=== PATIENT | female | born 1955 | race Asian ===

== ENCOUNTER → 2016-11-22 | Outpatient (CLI) | payer BC ==
[~2016-11-22] MED LIST: AMLO10TA4 PO; ASPI325T2 PO; CLOP75TA2 PO; LOSA1TAB34 PO; METF500T4 PO; METO100T5 PO; PRAV40TA58 PO; TRAM50TA73 PO
[2016-11-22 06:45] LABS: CLARITY URINE CLEAR (CLEAR); COLOR URINE YELLOW (YELLOW); GLUCOSE URINE NEGATIVE (NEGATIVE); KETONES URINE NEGATIVE (NEGATIVE); LEUKOCYTE ESTERASE URINE TRACE (NEGATIVE); NITRITE URINE NEGATIVE (NEGATIVE); OCCULT BLOOD URINE NEGATIVE (NEGATIVE); PH URINE 5.5 (4.5-8.0); PROTEIN URINE NEGATIVE (NEGATIVE); UROBILINOGEN URINE 0.2 E.U./dL (0.2-1.0)
[2016-11-22 06:49] LABS: EOSINOPHILS % 2.9 % (0.0-5.0); HEMATOCRIT. 39.4 % (36.0-48.0); HEMOGLOBIN. 13.2 g/dL (12.0-16.0); LYMPHOCYTES % 39.7 % (20.0-50.0); MEAN CORPUSCULAR HEMOGLOBIN 29.3 pg (28.0-32.0); MEAN CORPUSCULAR HGB CONC 33.4 g/dL (31.0-37.0); MEAN CORPUSCULAR VOLUME 87.5 fL (81.0-99.0); MEAN PLATELET VOLUME 7.7 fl (7.4-10.4); MONOCYTES % 6.1 % (2.0-8.0); NEUTROPHILS % 50.3 % (40.0-76.0); PLATELET 293 x1000/uL (130-400); RED CELL DISTRIBUTION WIDTH 13.2 % (11.6-14.6); WHITE BLOOD COUNT 8.7 x1000/uL (4.5-11.0)
[2016-11-22 07:01] LABS: SQUAMOUS EPITHELIAL CELL URINE FEW /lpf (RARE/1+)
[2016-11-22 07:03] LABS: BACTERIA URINE NONE SEEN; RBC URINE NONE SEEN /hpf (0-2); WBC URINE 0-2 /hpf (0-2)
[2016-11-22 07:23] LABS: ALANINE AMINOTRANSFERASE 49 IU/L (13-61); ALBUMIN 3.9 g/dL (3.4-5.0); ANION GAP 15; CALCIUM 8.6 mg/dL (8.5-10.1); CARBON DIOXIDE 26 mEq/L (21-32); CHLORIDE 106 mEq/L (98-107); HDL CHOLESTEROL 55 mg/dL (40-59); INDEX HEMOLYSI 1 (1-3); INDEX ICTERIC 1 (1-4); INDEX LIPEMIC 1 (1-3); LDL CHOLESTEROL 98 mg/dL (5-100); PHOSPHORUS 3.7 mg/dL (2.5-4.9); T4 FREE 1.09 ng/dL (0.76-1.46); TRIGLYCERIDE 166 mg/dL (0-150); UREA NITROGEN BLOOD 18 mg/dL (7-21); eGFR > 60 mL/min (>60)
[2016-11-23 13:12] LABS: VITAMIN D 25-OH 17.8 ng/mL (30.0-100.0)
[2016-11-23 14:24] LABS: *CREATININE RANDOM URINE 98.9 mg/dL (Not Estab.); MICROALBUMIN RANDOM URINE 28.6 ug/mL (Not Estab.); MICROALBUMIN/CREATININE RATIO 28.9 mg/g creat (0.0-30.0)
[2016-11-24 17:07] LABS: A/G RATIO 1.2 (0.7-1.7); ALBUMIN 4.2 g/dL (2.9-4.4); ALPHA-1-GLOBULIN 0.2 g/dL (0.0-0.4); ALPHA-2-GLOBULIN 0.7 g/dL (0.4-1.0); BETA GLOBULIN 1.3 g/dL (0.7-1.3); GAMMA GLOBULINS 1.3 g/dL (0.4-1.8); GLOBULIN TOTAL 3.5 g/dL (2.2-3.9); M-SPIKE Not Observed g/dL (Not Observed); TOTAL PROTEIN SERUM 7.7 g/dL (6.0-8.5)
== END | disposition home or self-care (01) ==
LOC: LAB 06:15
PROVIDERS: ATTEND Internal Medicine Endocrinology, Diabetes & Metabolism
DX: E11.9 Type 2 diabetes mellitus without complications (principal); I10 Essential (primary) hypertension; E78.5 Hyperlipidemia, unspecified; M85.80 Other specified disorders of bone density and structure, unspecified site; E55.9 Vitamin D deficiency, unspecified; E78.2 Mixed hyperlipidemia; I25.110 Atherosclerotic heart disease of native coronary artery with unstable angina pectoris
CPT/HCPCS: 36415; 80053; 80061; 81001; 82043; 82306; 82570; 83036; 83735; 83970; 84100; 84155; 84165; 84439; 84443; 85025; 87086

== ENCOUNTER → 2016-11-26 | Outpatient (CLI) | payer BC | END | disposition home or self-care (01) | LOC: MRI 07:17 | PROVIDERS: ATTEND Specialist | DX: G31.9 Degenerative disease of nervous system, unspecified (principal); R90.82 White matter disease, unspecified; R20.0 Anesthesia of skin | CPT/HCPCS: 70551 ==

== ENCOUNTER → 2016-12-07 | Outpatient (CLI) | payer BC | END | disposition home or self-care (01) | LOC: CARD 08:52 | PROVIDERS: ATTEND Specialist | DX: I10 Essential (primary) hypertension (principal); I25.10 Atherosclerotic heart disease of native coronary artery without angina pectoris | CPT/HCPCS: 93306 ==

== ENCOUNTER → 2016-12-24 | Outpatient (CLI) | payer BC ==
[~2016-12-24] MED LIST changes: +REGADENOSON 0.4 MG/5 ML IV ONE
== END | disposition home or self-care (01) ==
LOC: NM 07:50
PROVIDERS: ATTEND Specialist
DX: R07.9 Chest pain, unspecified (principal)
CPT/HCPCS: 78452; 93017; A9500; J2785

== ENCOUNTER → 2017-03-21 | Outpatient (CLI) | payer BC ==
[~2017-03-21] VITALS: Ht 162.6 cm; Wt 69.9 kg
[~2017-03-21] MED LIST changes: +ASPI-986 PO; -ASPI325T2 PO; +IOHEXOL-350 100 ML BOTTLE ONE; +NITROGLYCERIN SPRAY/4.9GM CAN TL ONE; -REGADENOSON 0.4 MG/5 ML IV ONE; +SODIUM CHLORIDE 0.9% 10ML VIAL ONE
== END | disposition home or self-care (01) ==
LOC: CT 07:33
PROVIDERS: ATTEND Specialist
DX: R07.9 Chest pain, unspecified (principal); I51.5 Myocardial degeneration
CPT/HCPCS: 75571; A4216; Q9967

== ENCOUNTER 2017-05-13 08:28 | Inpatient (IN) | payer BC ==
[~2017-05-13] VITALS: Ht 162.6 cm; Wt 71.2 kg
[2017-05-13] VITALS (10 sets, daily range): BP systolic 102–145; BP diastolic 52–82
[~2017-05-13 08:28] MED LIST changes: +CLOP75TA16 PO; -CLOP75TA2 PO; -IOHEXOL-350 100 ML BOTTLE ONE; -NITROGLYCERIN SPRAY/4.9GM CAN TL ONE; -SODIUM CHLORIDE 0.9% 10ML VIAL ONE
[2017-05-13 09:21] LABS: BASOPHILS % 0.8 % (0.0-2.0); HEMATOCRIT. 37.7 % (36.0-48.0); HEMOGLOBIN. 12.9 g/dL (12.0-16.0); LYMPHOCYTES % 21.7 % (20.0-50.0); MEAN CORPUSCULAR HEMOGLOBIN 29.3 pg (28.0-32.0); MEAN CORPUSCULAR VOLUME 85.6 fL (81.0-99.0); MEAN PLATELET VOLUME 8.3 fl (7.4-10.4); MONOCYTES % 7.9 % (2.0-8.0); NEUTROPHILS % 68.6 % (40.0-76.0); PLATELET 275 x1000/uL (130-400); RED CELL DISTRIBUTION WIDTH 13.2 % (11.6-14.6)
[2017-05-13 09:25] LABS: CHLORIDE 104 mEq/L (98-107)
[2017-05-13 09:31] LABS: CARBON DIOXIDE 28 mEq/L (21-32)
[2017-05-13] MEDS ORDERED: LIDOCAINE HCL 1% 20ML VIAL (Pyxis) INJ ONE (12:42)
[2017-05-13] MEDS ORDERED: IOHEXOL-300 100 ML BOTTLE ONE ×2 (12:42→13:27)
[2017-05-13] MEDS ORDERED: DIPHENHYDRAMINE 50MG/ML VIAL ONE (12:54)
[2017-05-13] MEDS ORDERED: HYDROCORTISONE SOD SUCCINATE 250 MG/2 ML VIAL ONE (12:54)
[2017-05-13] MEDS ORDERED: FAMOTIDINE 20MG/2ML VIAL IV ONE (12:54)
[2017-05-13] MEDS ORDERED: FENTANYL CITRATE/PF 50MCG/ML 2ML VIAL ONE (13:02)
[2017-05-13] MEDS ORDERED: MIDAZOLAM HCL 2 MG/2 ML VIAL ONE (13:02)
[2017-05-13] MEDS ORDERED: HEPARIN SODIUM 1,000 UNIT/1ML VIAL IV ONE (13:21)
[2017-05-13] MEDS ORDERED: IOVERSOL 240MG/ML 100ML BOTTLE IV ONE (13:25)
[2017-05-13] MEDS ORDERED: ATROPINE SULFATE 0.1MG/ML 10ML DISP.SYRIN ONE (13:27)
[2017-05-13] MEDS ORDERED: HYDRALAZINE 20MG/ML VIAL ONE (13:50)
[2017-05-13] MEDS ORDERED: NITROGLYCERIN 50MCG/ML 10ML VIAL (CATH LAB) IV ONE (14:15)
[2017-05-13] MEDS ORDERED: NICARDIPINE 100MCG/ML 10ML VIAL (CATH LAB) IV ONE (14:15)
[2017-05-13] MEDS ORDERED: TRAMADOL 50MG TABLET PO PRN (15:30)
[2017-05-13] MEDS ORDERED: ACETAMINOPHEN 325MG TABLET PO PRN (15:30)
[2017-05-13] MEDS ORDERED: ONDANSETRON HCL 4MG/2ML VIAL IV PRN (15:30)
[2017-05-13] MEDS ORDERED: ATROPINE SULFATE 1MG/10ML SYR IV PRN (15:45)
[2017-05-13] MEDS ORDERED: MORPHINE SULFATE 4 MG/ML CPJ (NOT FOR IM USE) IV PRN (15:45)
[2017-05-13] MEDS: METOPROLOL TARTRATE 100MG TABLET PO SCH (18:13)
[2017-05-14] VITALS (15 sets, daily range): BP systolic 108–135; BP diastolic 52–93
[2017-05-14] MEDS ORDERED: METHYLPREDNISOLONE SOD SUCC 125 MG/2 ML VIAL IV SCH (05:30)
[2017-05-14] MEDS ORDERED: FAMOTIDINE 20MG/2ML VIAL IV SCH (05:30)
[2017-05-14] MEDS ORDERED: DIPHENHYDRAMINE 50MG/ML VIAL IV SCH (05:30)
[2017-05-14 06:25] LABS: BASOPHILS % 0.5 % (0.0-2.0); EOSINOPHILS % 1.3 % (0.0-5.0); HEMATOCRIT. 37.6 % (36.0-48.0); HEMOGLOBIN. 12.9 g/dL (12.0-16.0); LYMPHOCYTES % 25.6 % (20.0-50.0); MEAN CORPUSCULAR HEMOGLOBIN 29.4 pg (28.0-32.0); MEAN CORPUSCULAR VOLUME 85.5 fL (81.0-99.0); MEAN PLATELET VOLUME 7.9 fl (7.4-10.4); MONOCYTES % 5.6 % (2.0-8.0); PLATELET 264 x1000/uL (130-400); RED CELL DISTRIBUTION WIDTH 13.5 % (11.6-14.6)
[2017-05-14 07:16] LABS: CHLORIDE 105 mEq/L (98-107)
[2017-05-14 07:28] LABS: CARBON DIOXIDE 24 mEq/L (21-32)
[2017-05-14] MEDS: METOPROLOL TARTRATE 100MG TABLET PO SCH ×2 (08:31→16:07)
[2017-05-14] MEDS: AMLODIPINE 10MG TABLET PO SCH (08:32)
[2017-05-14] MEDS: CLOPIDOGREL 75MG TABLET PO SCH (08:32)
[2017-05-14] MEDS: ASPIRIN 325MG TABLET PO SCH (08:32)
[2017-05-14] MEDS ORDERED: CLOPIDOGREL 75MG TABLET PO SCH (09:00)
[2017-05-14] MEDS ORDERED: ASPIRIN 325MG TABLET PO SCH (09:00)
[2017-05-14] MEDS ORDERED: POTASSIUM CHLORIDE 20MEQ TABLET SR PO NR (13:30)
[2017-05-14] MEDS: DIPHENHYDRAMINE 25MG CAPSULE PO PRN ×2 (14:21→20:21)
[2017-05-15] VITALS (8 sets, daily range): BP systolic 100–139; BP diastolic 54–81
[2017-05-15] MEDS: DIPHENHYDRAMINE 25MG CAPSULE PO PRN ×2 (05:44→11:00)
[2017-05-15 06:13] LABS: BASOPHILS % 0.1 % (0.0-2.0); EOSINOPHILS % 0.1 % (0.0-5.0); HEMATOCRIT. 36.7 % (36.0-48.0); HEMOGLOBIN. 12.4 g/dL (12.0-16.0); LYMPHOCYTES % 14.3 % (20.0-50.0); MEAN CORPUSCULAR HEMOGLOBIN 29.1 pg (28.0-32.0); MEAN CORPUSCULAR VOLUME 86.4 fL (81.0-99.0); MEAN PLATELET VOLUME 8.3 fl (7.4-10.4); MONOCYTES % 5.1 % (2.0-8.0); NEUTROPHILS % 80.4 % (40.0-76.0); PLATELET 292 x1000/uL (130-400); RED BLOOD CELL COUNT 4.24 mill/uL (4.2-5.4); RED CELL DISTRIBUTION WIDTH 13.5 % (11.6-14.6)
[2017-05-15 06:56] LABS: CARBON DIOXIDE 27 mEq/L (21-32); CHLORIDE 108 mEq/L (98-107)
[2017-05-15] MEDS: CLOPIDOGREL 75MG TABLET PO SCH (08:16)
[2017-05-15] MEDS: AMLODIPINE 10MG TABLET PO SCH (08:17)
[2017-05-15] MEDS: METOPROLOL TARTRATE 100MG TABLET PO SCH (08:17)
[2017-05-15] MEDS: ASPIRIN 325MG TABLET PO SCH (08:24)
[2017-05-15] MEDS ORDERED: PREDNISONE 20MG TABLET PO SCH (09:00)
[2017-05-15] MEDS ORDERED: ATORVASTATIN CALCIUM 40MG TABLET PO SCH (21:00)
== END 2017-05-15 12:15 | disposition home or self-care (01) | DRG 247 ==
LOC: CCL 08:28 → 3WST 08:29
PROVIDERS: ADMIT Specialist; ATTEND Specialist
PROC: 4A023N7 Measurement of Cardiac Sampling and Pressure, Left Heart, Percutaneous Approach (ICD-10-PCS; principal; 2017-05-13)
PROC: 027034Z Dilation of Coronary Artery, One Artery with Drug-eluting Intraluminal Device, Percutaneous Approach (ICD-10-PCS; 2017-05-13)
PROC: B2111ZZ Fluoroscopy of Multiple Coronary Arteries using Low Osmolar Contrast (ICD-10-PCS; 2017-05-13)
DX: I25.110 Atherosclerotic heart disease of native coronary artery with unstable angina pectoris (principal); I10 Essential (primary) hypertension; E11.9 Type 2 diabetes mellitus without complications; E78.5 Hyperlipidemia, unspecified; E87.6 Hypokalemia; Z82.49 Family history of ischemic heart disease and other diseases of the circulatory system; Z83.3 Family history of diabetes mellitus; Z91.041 Radiographic dye allergy status
CPT/HCPCS: 36415; 80048; 85025; 85347; 92928; 93005; 93454; C1760; C1769; C1887; C1893; J0360; J0461; J1200; J1644; J1720; J2250; J2930; J3010; J3490; J7512; Q0163; Q9967

== ENCOUNTER → 2017-06-21 | Outpatient (CLI) | payer BC ==
[2017-06-21 09:22] LABS: BASOPHILS % 1.1 % (0.0-2.0); EOSINOPHILS % 2.6 % (0.0-5.0); HEMATOCRIT. 37.1 % (36.0-48.0); HEMOGLOBIN. 12.6 g/dL (12.0-16.0); LYMPHOCYTES % 35.7 % (20.0-50.0); MEAN PLATELET VOLUME 7.7 fl (7.4-10.4); MONOCYTES % 6.7 % (2.0-8.0); NEUTROPHILS % 53.9 % (40.0-76.0); PLATELET 290 x1000/uL (130-400); RED BLOOD CELL COUNT 4.36 mill/uL (4.2-5.4); RED CELL DISTRIBUTION WIDTH 13.3 % (11.6-14.6)
[2017-06-21 09:31] LABS: CLARITY URINE CLEAR (CLEAR); COLOR URINE YELLOW (YELLOW); GLUCOSE URINE NEGATIVE (NEGATIVE); KETONES URINE NEGATIVE (NEGATIVE); LEUKOCYTE ESTERASE URINE NEGATIVE (NEGATIVE); NITRITE URINE NEGATIVE (NEGATIVE); OCCULT BLOOD URINE NEGATIVE (NEGATIVE); PROTEIN URINE NEGATIVE (NEGATIVE); SPECIFIC GRAVITY URINE 1.025 (1.005-1.030); UROBILINOGEN URINE 0.2 E.U./dL (0.2-1.0)
[2017-06-21 09:56] LABS: CARBON DIOXIDE 27 mEq/L (21-32); CHLORIDE 107 mEq/L (98-107); HDL CHOLESTEROL 44 mg/dL (40-59); LDL CHOLESTEROL 72 mg/dL (5-100); T4 FREE 1.08 ng/dL (0.76-1.46)
[2017-06-22 09:07] LABS: VITAMIN D 25-OH 31.9 ng/mL (30.0-100.0)
== END | disposition home or self-care (01) ==
LOC: LAB 08:37
PROVIDERS: ATTEND Internal Medicine Endocrinology, Diabetes & Metabolism
DX: I10 Essential (primary) hypertension (principal); E11.9 Type 2 diabetes mellitus without complications; E78.2 Mixed hyperlipidemia; R53.83 Other fatigue
CPT/HCPCS: 36415; 80053; 80061; 81003; 82088; 82306; 82533; 83036; 84439; 84443; 85025; 87086

== ENCOUNTER → 2018-02-07 | Outpatient (CLI) | payer BC ==
[~2018-02-07] MED LIST changes: -METF500T4 PO; +METF500T6 PO; +METO100T16 PO; -METO100T5 PO; -TRAM50TA73 PO; +TRAM50TA94 PO
[2018-02-07 07:37] LABS: BASOPHILS % 0.9 % (0.0-2.0); EOSINOPHILS % 2.7 % (0.0-5.0); HEMOGLOBIN. 12.7 g/dL (12.0-16.0); LYMPHOCYTES % 33.7 % (20.0-50.0); MEAN CORPUSCULAR HEMOGLOBIN 29.4 pg (28.0-32.0); MEAN PLATELET VOLUME 7.7 fl (7.4-10.4); MONOCYTES % 6.4 % (2.0-8.0); NEUTROPHILS % 56.3 % (40.0-76.0); PLATELET 268 x1000/uL (130-400); RED CELL DISTRIBUTION WIDTH 13.1 % (11.6-14.6)
[2018-02-07 08:31] LABS: CHLORIDE 106 mEq/L (98-107)
[2018-02-07 08:58] LABS: LDL CHOLESTEROL 66 mg/dL (5-100)
[2018-02-07 08:59] LABS: T4 FREE 1.06 ng/dL (0.76-1.46)
[2018-02-07 09:10] LABS: HDL CHOLESTEROL 49 mg/dL (40-59)
[2018-02-07 11:03] LABS: FERRITIN 198 ng/mL (10-291)
[2018-02-07 15:46] LABS: VITAMIN B12 SERUM 390 pg/mL (211-911)
[2018-02-07 15:56] LABS: FOLIC ACID (FOLATE) SERUM > 20.00 ng/mL (>5.38)
== END | disposition home or self-care (01) ==
LOC: LAB 06:27
PROVIDERS: ATTEND Specialist
DX: I11.9 Hypertensive heart disease without heart failure (principal); E78.2 Mixed hyperlipidemia; E55.9 Vitamin D deficiency, unspecified
CPT/HCPCS: 36415; 80053; 80061; 82306; 82607; 82728; 82746; 83036; 84439; 84443; 84481; 85025

== ENCOUNTER → 2018-04-03 | Outpatient (CLI) | payer BC ==
[2018-04-03 07:23] LABS: BASOPHILS % 0.9 % (0.0-2.0); EOSINOPHILS % 2.4 % (0.0-5.0); HEMATOCRIT. 35.8 % (36.0-48.0); HEMOGLOBIN. 12.2 g/dL (12.0-16.0); LYMPHOCYTES % 36.5 % (20.0-50.0); MEAN CORPUSCULAR HEMOGLOBIN 29.6 pg (28.0-32.0); MEAN CORPUSCULAR VOLUME 86.5 fL (81.0-99.0); MEAN PLATELET VOLUME 7.6 fl (7.4-10.4); MONOCYTES % 6.5 % (2.0-8.0); NEUTROPHILS % 53.7 % (40.0-76.0); PLATELET 300 x1000/uL (130-400); RED BLOOD CELL COUNT 4.14 mill/uL (4.2-5.4); RED CELL DISTRIBUTION WIDTH 13.4 % (11.6-14.6)
[2018-04-03 07:40] LABS: CHLORIDE 108 mEq/L (98-107)
[2018-04-03 07:47] LABS: LDL CHOLESTEROL 71 mg/dL (5-100)
[2018-04-03 07:49] LABS: HDL CHOLESTEROL 49 mg/dL (40-59); T4 FREE 1.14 ng/dL (0.76-1.46)
[2018-04-03 07:54] LABS: FOLIC ACID (FOLATE) SERUM 18.2 ng/mL (>5.38)
[2018-04-04 13:07] LABS: *CREATININE RANDOM URINE 50.7 mg/dL (Not Estab.); MICROALBUMIN RANDOM URINE 16.1 ug/mL (Not Estab.)
[2018-04-06 13:00] LABS: VITAMIN D 25-OH 27.3 ng/mL (30.0-100.0)
== END | disposition home or self-care (01) ==
LOC: LAB 06:47
PROVIDERS: ATTEND Internal Medicine Endocrinology, Diabetes & Metabolism
DX: E11.9 Type 2 diabetes mellitus without complications (principal); I10 Essential (primary) hypertension; E55.9 Vitamin D deficiency, unspecified; M06.9 Rheumatoid arthritis, unspecified; Z79.82 Long term (current) use of aspirin; Z79.899 Other long term (current) drug therapy
CPT/HCPCS: 36415; 80053; 80061; 82043; 82306; 82570; 82607; 82746; 83036; 83921; 84439; 84443; 85025

== ENCOUNTER → 2018-04-11 | Outpatient (CLI) | payer BC ==
[2018-04-11 09:46] LABS: CHLORIDE 104 mEq/L (98-107)
== END | disposition home or self-care (01) ==
LOC: LAB 09:03
PROVIDERS: ATTEND Specialist
DX: E78.2 Mixed hyperlipidemia (principal); R07.9 Chest pain, unspecified; R06.02 Shortness of breath; I10 Essential (primary) hypertension; Z79.82 Long term (current) use of aspirin
CPT/HCPCS: 36415; 80053

== ENCOUNTER → 2018-05-26 | Outpatient (CLI) | payer BC ==
[~2018-05-26] VITALS: Ht 162.6 cm; Wt 67.1 kg
[~2018-05-26] MED LIST changes: +METF-414 PO; -METF500T6 PO; +METOPROLOL TARTRATE 5MG/5ML VIAL IV ONE; +NITROGLYCERIN SPRAY/4.9GM CAN TL NR
== END | disposition home or self-care (01) ==
LOC: CT 07:02
PROVIDERS: ATTEND Specialist
DX: R06.02 Shortness of breath (principal); I10 Essential (primary) hypertension; E78.2 Mixed hyperlipidemia; E11.9 Type 2 diabetes mellitus without complications; M06.9 Rheumatoid arthritis, unspecified; Z79.899 Other long term (current) drug therapy; Z79.82 Long term (current) use of aspirin
CPT/HCPCS: 96374; J3490

== ENCOUNTER → 2018-11-13 | Outpatient (CLI) | payer BC ==
[~2018-11-13] MED LIST changes: -METOPROLOL TARTRATE 5MG/5ML VIAL IV ONE; -NITROGLYCERIN SPRAY/4.9GM CAN TL NR
[2018-11-13 07:37] LABS: BASOPHILS % 1.1 % (0.0-2.0); EOSINOPHILS % 2.8 % (0.0-5.0); HEMATOCRIT. 36.5 % (36.0-48.0); HEMOGLOBIN. 12.1 g/dL (12.0-16.0); LYMPHOCYTES % 40.7 % (20.0-50.0); MEAN CORPUSCULAR HEMOGLOBIN 28.2 pg (28.0-32.0); MEAN CORPUSCULAR VOLUME 85.3 fL (81.0-99.0); MEAN PLATELET VOLUME 7.6 fl (7.4-10.4); MONOCYTES % 7.8 % (2.0-8.0); NEUTROPHILS % 47.6 % (40.0-76.0); PLATELET 340 x1000/uL (130-400); RED BLOOD CELL COUNT 4.28 mill/uL (4.2-5.4); RED CELL DISTRIBUTION WIDTH 13.4 % (11.6-14.6)
[2018-11-13 07:41] LABS: CLARITY URINE CLEAR (CLEAR); COLOR URINE YELLOW (YELLOW); KETONES URINE NEGATIVE (NEGATIVE); LEUKOCYTE ESTERASE URINE NEGATIVE (NEGATIVE); NITRITE URINE NEGATIVE (NEGATIVE); OCCULT BLOOD URINE NEGATIVE (NEGATIVE); PH URINE 5.5 (4.5-8.0); PROTEIN URINE NEGATIVE (NEGATIVE); SPECIFIC GRAVITY URINE 1.021 (1.005-1.030); UROBILINOGEN URINE 0.2 E.U./dL (0.2-1.0)
[2018-11-13 07:51] LABS: CHLORIDE 106 mEq/L (98-107)
[2018-11-13 07:59] LABS: LDL CHOLESTEROL 82 mg/dL (5-100)
[2018-11-13 08:00] LABS: HDL CHOLESTEROL 45 mg/dL (40-59)
[2018-11-13 08:03] LABS: T4 FREE 1.27 ng/dL (0.76-1.46)
[2018-11-13 15:02] LABS: FOLIC ACID (FOLATE) SERUM 18.6 ng/mL (>5.38)
[2018-11-14 09:06] LABS: VITAMIN D 25-OH 26.5 ng/mL (30.0-100.0)
== END | disposition home or self-care (01) ==
LOC: LAB 06:55
PROVIDERS: ATTEND Specialist
DX: I10 Essential (primary) hypertension (principal); E11.9 Type 2 diabetes mellitus without complications; E55.9 Vitamin D deficiency, unspecified; M19.90 Unspecified osteoarthritis, unspecified site
CPT/HCPCS: 36415; 80061; 82043; 82306; 82570; 82746; 83036; 83921; 84439; 84443

== ENCOUNTER → 2019-07-02 | Outpatient (CLI) | payer BC ==
[~2019-07-02] MED LIST changes: -CLOP75TA16 PO; +CLOP75TA4 PO
[2019-07-02 07:26] LABS: CHLORIDE 107 mEq/L (98-107)
[2019-07-02 07:33] LABS: LDL CHOLESTEROL 75 mg/dL (5-100)
[2019-07-02 07:35] LABS: HDL CHOLESTEROL 49 mg/dL (40-59)
[2019-07-02 07:36] LABS: T4 FREE 1.01 ng/dL (0.76-1.46)
[2019-07-02 07:42] LABS: BASOPHILS % 0.9 % (0.0-2.0); CLARITY URINE CLEAR (CLEAR); COLOR URINE YELLOW (YELLOW); EOSINOPHILS % 1.9 % (0.0-5.0); HEMATOCRIT. 37.3 % (36.0-48.0); HEMOGLOBIN. 12.8 g/dL (12.0-16.0); KETONES URINE NEGATIVE (NEGATIVE); LEUKOCYTE ESTERASE URINE 1+ (NEGATIVE); LYMPHOCYTES % 30.8 % (20.0-50.0); MEAN CORPUSCULAR HEMOGLOBIN 29.6 pg (28.0-32.0); MEAN CORPUSCULAR VOLUME 86.5 fL (81.0-99.0); MONOCYTES % 5.9 % (2.0-8.0); NEUTROPHILS % 60.5 % (40.0-76.0); NITRITE URINE NEGATIVE (NEGATIVE); OCCULT BLOOD URINE TRACE (NEGATIVE); PLATELET 278 x1000/uL (130-400); PROTEIN URINE NEGATIVE (NEGATIVE); RED BLOOD CELL COUNT 4.31 mill/uL (4.2-5.4); RED CELL DISTRIBUTION WIDTH 13.4 % (11.6-14.6); UROBILINOGEN URINE 0.2 E.U./dL (0.2-1.0)
[2019-07-03 08:08] LABS: *CREATININE RANDOM URINE 164.3 mg/dL (Not Estab.); MICROALBUMIN RANDOM URINE 28.5 ug/mL (Not Estab.)
== END | disposition home or self-care (01) ==
LOC: LAB 06:49
PROVIDERS: ATTEND Internal Medicine Endocrinology, Diabetes & Metabolism
DX: E11.9 Type 2 diabetes mellitus without complications (principal); I10 Essential (primary) hypertension; E78.00 Pure hypercholesterolemia, unspecified; K21.9 Gastro-esophageal reflux disease without esophagitis; E78.5 Hyperlipidemia, unspecified
CPT/HCPCS: 36415; 80061; 81003; 82043; 82306; 82570; 83036; 84439; 84443

== ENCOUNTER → 2019-11-02 | Outpatient (CLI) | payer BC ==
[2019-11-02 08:20] LABS: EOSINOPHILS % 2.4 % (0.0-5.0); HEMATOCRIT. 38.1 % (36.0-48.0); LYMPHOCYTES % 36.4 % (20.0-50.0); MEAN CORPUSCULAR HEMOGLOBIN 29.4 pg (28.0-32.0); MEAN CORPUSCULAR VOLUME 86.2 fL (81.0-99.0); MEAN PLATELET VOLUME 7.6 fl (7.4-10.4); MONOCYTES % 5.2 % (2.0-8.0); PLATELET 279 x1000/uL (130-400); RED BLOOD CELL COUNT 4.42 mill/uL (4.2-5.4); RED CELL DISTRIBUTION WIDTH 13.5 % (11.6-14.6)
[2019-11-02 08:28] LABS: CHLORIDE 107 mEq/L (98-107)
[2019-11-02 08:37] LABS: HDL CHOLESTEROL 51 mg/dL (40-59); LDL CHOLESTEROL 72 mg/dL (5-100)
[2019-11-02 08:38] LABS: T4 FREE 1.16 ng/dL (0.76-1.46)
== END | disposition home or self-care (01) ==
LOC: LAB 07:45
PROVIDERS: ATTEND Internal Medicine Endocrinology, Diabetes & Metabolism
DX: E78.2 Mixed hyperlipidemia (principal); E55.9 Vitamin D deficiency, unspecified; D64.9 Anemia, unspecified
CPT/HCPCS: 36415; 80053; 80061; 82306; 83036; 84439; 84443; 84480; 85025

== ENCOUNTER → 2019-12-31 | Outpatient (CLI) | payer BC ==
[2019-12-31 08:30] LABS: CHLORIDE 106 mEq/L (98-107)
[2019-12-31 08:37] LABS: EOSINOPHILS % 1.6 % (0.0-5.0); HEMATOCRIT. 39.5 % (36.0-48.0); HEMOGLOBIN. 13.6 g/dL (12.0-16.0); LYMPHOCYTES % 33.6 % (20.0-50.0); MEAN CORPUSCULAR HEMOGLOBIN 29.7 pg (28.0-32.0); MEAN CORPUSCULAR VOLUME 86.3 fL (81.0-99.0); MONOCYTES % 5.7 % (2.0-8.0); NEUTROPHILS % 58.1 % (40.0-76.0); PLATELET 296 x1000/uL (130-400); RED BLOOD CELL COUNT 4.57 mill/uL (4.2-5.4); RED CELL DISTRIBUTION WIDTH 13.4 % (11.6-14.6)
[2019-12-31 08:38] LABS: LDL CHOLESTEROL 63 mg/dL (5-100)
[2019-12-31 08:39] LABS: HDL CHOLESTEROL 55 mg/dL (40-59); T4 FREE 1.08 ng/dL (0.76-1.46)
== END | disposition home or self-care (01) ==
LOC: LAB 08:00
PROVIDERS: ATTEND Specialist
DX: E78.2 Mixed hyperlipidemia (principal); E55.9 Vitamin D deficiency, unspecified; D64.9 Anemia, unspecified
CPT/HCPCS: 36415; 80053; 80061; 82306; 83036; 84439; 84443; 84480; 85025

== ENCOUNTER → 2020-05-16 | Outpatient (CLI) | payer BC ==
[~2020-05-16] MED LIST changes: +REGADENOSON 0.4 MG/5 ML IV ONE
== END | disposition home or self-care (01) ==
LOC: CARD 06:59
PROVIDERS: ATTEND Specialist
DX: I25.10 Atherosclerotic heart disease of native coronary artery without angina pectoris (principal)
CPT/HCPCS: 78452; 93017; 93306; J2785

== ENCOUNTER → 2020-05-19 | Outpatient (CLI) | payer BC ==
[~2020-05-19] MED LIST changes: -REGADENOSON 0.4 MG/5 ML IV ONE
[2020-05-19 09:43] LABS: CLARITY URINE CLEAR (CLEAR); COLOR URINE YELLOW (YELLOW); KETONES URINE NEGATIVE (NEGATIVE); LEUKOCYTE ESTERASE URINE 1+ (NEGATIVE); NITRITE URINE NEGATIVE (NEGATIVE); OCCULT BLOOD URINE NEGATIVE (NEGATIVE); PROTEIN URINE NEGATIVE (NEGATIVE); SPECIFIC GRAVITY URINE 1.016 (1.005-1.030); UROBILINOGEN URINE 0.2 E.U./dL (0.2-1.0)
[2020-05-19 09:46] LABS: CHLORIDE 107 mEq/L (98-107)
[2020-05-19 09:48] LABS: BASOPHILS % 0.8 % (0.0-2.0); EOSINOPHILS % 1.7 % (0.0-5.0); HEMATOCRIT. 36.9 % (36.0-48.0); HEMOGLOBIN. 12.5 g/dL (12.0-16.0); LYMPHOCYTES % 32.3 % (20.0-50.0); MEAN CORPUSCULAR HEMOGLOBIN 29.3 pg (28.0-32.0); MEAN CORPUSCULAR VOLUME 86.3 fL (81.0-99.0); MEAN PLATELET VOLUME 7.8 fl (7.4-10.4); MONOCYTES % 6.3 % (2.0-8.0); NEUTROPHILS % 58.9 % (40.0-76.0); PLATELET 266 x1000/uL (130-400); RED BLOOD CELL COUNT 4.27 mill/uL (4.2-5.4); RED CELL DISTRIBUTION WIDTH 13.2 % (11.6-14.6)
[2020-05-19 09:56] LABS: LDL CHOLESTEROL 66 mg/dL (5-100)
[2020-05-19 09:58] LABS: CREATINE KINASE 145 IU/L (26-192); HDL CHOLESTEROL 49 mg/dL (40-59); T4 FREE 1.14 ng/dL (0.76-1.46)
[2020-05-19 10:07] LABS: FOLIC ACID (FOLATE) SERUM 16.9 ng/mL (>5.38)
[2020-05-21 08:11] LABS: MICROALBUMIN RANDOM URINE 11.3 ug/mL (Not Estab.)
== END | disposition home or self-care (01) ==
LOC: LAB 08:07
PROVIDERS: ATTEND Internal Medicine Endocrinology, Diabetes & Metabolism
DX: E11.9 Type 2 diabetes mellitus without complications (principal); I10 Essential (primary) hypertension; G62.9 Polyneuropathy, unspecified; M10.9 Gout, unspecified
CPT/HCPCS: 36415; 80053; 80061; 81003; 82043; 82550; 82570; 82607; 82746; 83036; 84439; 84443; 84550; 85025

== ENCOUNTER → 2020-06-16 | Outpatient (CLI) | payer BC | END | disposition home or self-care (01) | LOC: LAB 06:53 | PROVIDERS: ATTEND Specialist | DX: R05 Cough (principal); Z20.828 Contact with and (suspected) exposure to other viral communicable diseases | CPT/HCPCS: C9803; U0003 ==

== ENCOUNTER → 2020-06-18 | Outpatient (CLI) | payer BC | END | disposition home or self-care (01) | LOC: PVL 09:33 | PROVIDERS: ATTEND Specialist | DX: I67.82 Cerebral ischemia (principal); J32.9 Chronic sinusitis, unspecified; G45.9 Transient cerebral ischemic attack, unspecified | CPT/HCPCS: 70544; 70553; 93880 ==

== ENCOUNTER → 2020-07-28 | Outpatient (CLI) | payer BC | END | disposition home or self-care (01) | LOC: LAB 07:22 | PROVIDERS: ATTEND Internal Medicine Endocrinology, Diabetes & Metabolism | DX: E11.9 Type 2 diabetes mellitus without complications (principal); I10 Essential (primary) hypertension; M10.9 Gout, unspecified; E78.2 Mixed hyperlipidemia | CPT/HCPCS: C9803; U0003 ==

== ENCOUNTER → 2020-07-28 | Outpatient (CLI) | payer BC ==
[2020-07-28 08:50] LABS: BASOPHILS % 1.1 % (0.0-2.0); EOSINOPHILS % 1.6 % (0.0-5.0); HEMATOCRIT. 38.5 % (36.0-48.0); HEMOGLOBIN. 13.2 g/dL (12.0-16.0); LYMPHOCYTES % 31.5 % (20.0-50.0); MEAN CORPUSCULAR HEMOGLOBIN 29.2 pg (28.0-32.0); MEAN CORPUSCULAR VOLUME 85.5 fL (81.0-99.0); MEAN PLATELET VOLUME 7.8 fl (7.4-10.4); NEUTROPHILS % 60.8 % (40.0-76.0); PLATELET 296 x1000/uL (130-400); RED CELL DISTRIBUTION WIDTH 13.2 % (11.6-14.6)
[2020-07-28 09:18] LABS: CHLORIDE 105 mEq/L (98-107)
[2020-07-28 09:28] LABS: LDL CHOLESTEROL 85 mg/dL (5-100)
[2020-07-28 09:30] LABS: HDL CHOLESTEROL 59 mg/dL (40-59)
[2020-07-28 09:51] LABS: DIGOXIN < 0.1 ng/mL (0.9-2.0)
== END | disposition home or self-care (01) ==
LOC: LAB 07:32 → EDSTATUS 10:34
PROVIDERS: ATTEND Specialist
DX: E78.2 Mixed hyperlipidemia (principal); E11.9 Type 2 diabetes mellitus without complications; D64.9 Anemia, unspecified
CPT/HCPCS: 36415; 80053; 80061; 80162; 82306; 83036; 84443; 85025

== ENCOUNTER → 2020-07-30 | Outpatient (CLI) | payer BC | END | disposition home or self-care (01) | LOC: RAD 09:10 | PROVIDERS: ATTEND Internal Medicine Endocrinology, Diabetes & Metabolism | DX: M81.0 Age-related osteoporosis without current pathological fracture (principal); M85.80 Other specified disorders of bone density and structure, unspecified site | CPT/HCPCS: 77080 ==

== ENCOUNTER → 2021-01-12 | Outpatient (CLI) | payer BC ==
[~2021-01-12] MED LIST changes: +CLOP-31 PO; -CLOP75TA4 PO
== END | disposition home or self-care (01) ==
LOC: CARD 12:01
PROVIDERS: ATTEND Specialist
DX: R07.9 Chest pain, unspecified (principal); I25.10 Atherosclerotic heart disease of native coronary artery without angina pectoris
CPT/HCPCS: 93306

== ENCOUNTER → 2021-01-12 | Outpatient (CLI) | payer BC ==
[2021-01-12 09:54] LABS: BASOPHILS % 0.8 % (0.0-2.0); EOSINOPHILS % 1.6 % (0.0-5.0); HEMATOCRIT. 37.6 % (36.0-48.0); HEMOGLOBIN. 12.9 g/dL (12.0-16.0); LYMPHOCYTES % 34.4 % (20.0-50.0); MEAN CORPUSCULAR HEMOGLOBIN 29.6 pg (28.0-32.0); MEAN CORPUSCULAR VOLUME 86.7 fL (81.0-99.0); MEAN PLATELET VOLUME 7.8 fl (7.4-10.4); MONOCYTES % 6.5 % (2.0-8.0); NEUTROPHILS % 56.7 % (40.0-76.0); PLATELET 289 x1000/uL (130-400); RED BLOOD CELL COUNT 4.34 mill/uL (4.2-5.4); RED CELL DISTRIBUTION WIDTH 13.6 % (11.6-14.6)
[2021-01-12 10:38] LABS: CHLORIDE 108 mEq/L (98-107)
[2021-01-12 10:47] LABS: CREATINE KINASE 123 IU/L (26-192); LDL CHOLESTEROL 78 mg/dL (5-100)
[2021-01-12 10:48] LABS: HDL CHOLESTEROL 54 mg/dL (40-59); T4 FREE 1.17 ng/dL (0.76-1.46)
[2021-01-12 11:13] LABS: VITAMIN B12 SERUM 296 pg/mL (211-911)
[2021-01-12 11:59] LABS: FOLIC ACID (FOLATE) SERUM > 20.00 ng/mL (>5.38)
[2021-01-13 09:11] LABS: VITAMIN D 25-OH 24.2 ng/mL (30.0-100.0)
== END | disposition home or self-care (01) ==
LOC: LAB 09:18
PROVIDERS: ATTEND Internal Medicine Endocrinology, Diabetes & Metabolism
DX: E78.5 Hyperlipidemia, unspecified (principal); E11.40 Type 2 diabetes mellitus with diabetic neuropathy, unspecified; E55.9 Vitamin D deficiency, unspecified; M10.9 Gout, unspecified
CPT/HCPCS: 36415; 80053; 80061; 82306; 82550; 82607; 82746; 83036; 83921; 84439; 84443; 84550; 85025

== ENCOUNTER → 2021-07-22 | Outpatient (CLI) | payer BC ==
[2021-07-22 08:41] LABS: BASOPHILS % 0.5 % (0.0-2.0); EOSINOPHILS % 0.4 % (0.0-5.0); HEMATOCRIT. 37.9 % (36.0-48.0); HEMOGLOBIN. 12.7 g/dL (12.0-16.0); LYMPHOCYTES % 26.7 % (20.0-50.0); MEAN CORPUSCULAR HEMOGLOBIN 28.7 pg (28.0-32.0); MEAN CORPUSCULAR VOLUME 85.8 fL (81.0-99.0); MEAN PLATELET VOLUME 7.8 fl (7.4-10.4); MONOCYTES % 4.4 % (2.0-8.0); PLATELET 289 x1000/uL (130-400); RED BLOOD CELL COUNT 4.42 mill/uL (4.2-5.4); RED CELL DISTRIBUTION WIDTH 13.3 % (11.6-14.6)
[2021-07-22 08:48] LABS: CHLORIDE 108 mEq/L (98-107)
[2021-07-22 08:57] LABS: LDL CHOLESTEROL 78 mg/dL (5-100)
[2021-07-22 08:58] LABS: HDL CHOLESTEROL 55 mg/dL (40-59); T4 FREE 1.04 ng/dL (0.76-1.46)
[2021-07-23 07:08] LABS: *CREATININE RANDOM URINE 162.9 mg/dL (Not Estab.); MICROALBUMIN RANDOM URINE 44.6 ug/mL (Not Estab.)
== END | disposition home or self-care (01) ==
LOC: LAB 07:39
PROVIDERS: ATTEND Specialist
DX: I65.23 Occlusion and stenosis of bilateral carotid arteries (principal); M50.23 Other cervical disc displacement, cervicothoracic region; M48.02 Spinal stenosis, cervical region; E11.9 Type 2 diabetes mellitus without complications; E55.9 Vitamin D deficiency, unspecified; R20.2 Paresthesia of skin; E78.2 Mixed hyperlipidemia; I25.10 Atherosclerotic heart disease of native coronary artery without angina pectoris; D64.9 Anemia, unspecified
CPT/HCPCS: 36415; 72141; 80053; 80061; 82043; 82306; 82570; 83036; 84439; 84443; 84481; 84550; 85025; 93880

== ENCOUNTER → 2021-11-23 | Outpatient (CLI) | payer BC ==
[2021-11-23 07:41] LABS: CHLORIDE 107 mEq/L (98-107)
[2021-11-23 07:50] LABS: BASOPHILS % 0.9 % (0.0-2.0); EOSINOPHILS % 2.6 % (0.0-5.0); HEMATOCRIT. 36.5 % (36.0-48.0); HEMOGLOBIN. 12.6 g/dL (12.0-16.0); LYMPHOCYTES % 33.2 % (20.0-50.0); MEAN CORPUSCULAR HEMOGLOBIN 29.7 pg (28.0-32.0); MEAN PLATELET VOLUME 7.6 fl (7.4-10.4); MONOCYTES % 6.1 % (2.0-8.0); NEUTROPHILS % 57.2 % (40.0-76.0); PLATELET 289 x1000/uL (130-400); RED BLOOD CELL COUNT 4.24 mill/uL (4.2-5.4); RED CELL DISTRIBUTION WIDTH 13.2 % (11.6-14.6)
[2021-11-23 07:52] LABS: LDL CHOLESTEROL 68 mg/dL (5-100)
[2021-11-23 07:53] LABS: T4 FREE 1.13 ng/dL (0.76-1.46)
[2021-11-23 07:54] LABS: HDL CHOLESTEROL 49 mg/dL (40-59)
== END | disposition home or self-care (01) ==
LOC: LAB 06:56
PROVIDERS: ATTEND Specialist
DX: E11.9 Type 2 diabetes mellitus without complications (principal); E78.2 Mixed hyperlipidemia; E55.9 Vitamin D deficiency, unspecified; D64.9 Anemia, unspecified
CPT/HCPCS: 36415; 80053; 80061; 82652; 83036; 84439; 84443; 84481; 85025

== ENCOUNTER → 2022-03-03 | Outpatient (CLI) | payer BC ==
[2022-03-03 07:28] LABS: BASOPHILS % 0.9 % (0.0-2.0); EOSINOPHILS % 2.5 % (0.0-5.0); HEMATOCRIT. 35.8 % (36.0-48.0); HEMOGLOBIN. 12.3 g/dL (12.0-16.0); LYMPHOCYTES % 36.4 % (20.0-50.0); MEAN CORPUSCULAR HEMOGLOBIN 29.4 pg (28.0-32.0); MEAN CORPUSCULAR VOLUME 85.2 fL (81.0-99.0); MEAN PLATELET VOLUME 7.8 fl (7.4-10.4); MONOCYTES % 6.7 % (2.0-8.0); NEUTROPHILS % 53.5 % (40.0-76.0); PLATELET 269 x1000/uL (130-400); RED CELL DISTRIBUTION WIDTH 13.5 % (11.6-14.6)
[2022-03-03 08:18] LABS: CHLORIDE 107 mEq/L (98-107)
[2022-03-03 08:36] LABS: HDL CHOLESTEROL 48 mg/dL (40-59); LDL CHOLESTEROL 64 mg/dL (5-100); T4 FREE 1.08 ng/dL (0.76-1.46)
== END | disposition home or self-care (01) ==
LOC: LAB 07:02
PROVIDERS: ATTEND Specialist
DX: D64.9 Anemia, unspecified (principal); E78.2 Mixed hyperlipidemia; E11.9 Type 2 diabetes mellitus without complications
CPT/HCPCS: 36415; 80053; 80061; 82306; 83036; 84439; 84443; 84480; 85025

== ENCOUNTER → 2022-03-10 | Outpatient (CLI) | payer BC | END | disposition home or self-care (01) | LOC: RAD 13:09 | DX: M47.817 Spondylosis without myelopathy or radiculopathy, lumbosacral region (principal); M16.12 Unilateral primary osteoarthritis, left hip | CPT/HCPCS: 72110; 73502 ==

== ENCOUNTER 2022-03-15 13:55 | Inpatient (IN) | payer BC ==
[~2022-03-15] VITALS: Ht 160 cm; Wt 69.5 kg
[2022-03-15] MEDS ORDERED: NITROGLYCERIN 0.4MG TABLET SL SL PRN (14:45)
[2022-03-15] MEDS ORDERED: ASPIRIN 81MG TABLET PO ONE (14:45)
[2022-03-15 15:32] LABS: BASOPHILS % 0.7 % (0.0-2.0); EOSINOPHILS % 1.6 % (0.0-5.0); HEMATOCRIT. 37.2 % (36.0-48.0); HEMOGLOBIN. 12.5 g/dL (12.0-16.0); LYMPHOCYTES % 35.6 % (20.0-50.0); MEAN CORPUSCULAR HEMOGLOBIN 29.2 pg (28.0-32.0); MEAN PLATELET VOLUME 7.9 fl (7.4-10.4); MONOCYTES % 6.9 % (2.0-8.0); NEUTROPHILS % 55.2 % (40.0-76.0); PLATELET 278 x1000/uL (130-400); RED BLOOD CELL COUNT 4.27 mill/uL (4.2-5.4); RED CELL DISTRIBUTION WIDTH 13.6 % (11.6-14.6)
[2022-03-15 15:34] LABS: CHLORIDE 104 mEq/L (98-107)
[2022-03-15 15:38] LABS: D-DIMER 0.26 mg/L FEU (<0.50); PARTIAL THROMBOPLASTIN TIME 25.8 sec (23.4-31.0); PROTHROMBIN TIME 10.4 sec (9.6-11.0)
[2022-03-15] MEDS: LOSARTAN POTASSIUM 25 MG TABLET PO SCH (16:15)
[2022-03-15] MEDS ORDERED: POTASSIUM CHLORIDE 20MEQ TABLET SR PO NR (16:18)
[2022-03-15 17:04] LABS: T4 FREE 1.09 ng/dL (0.76-1.46)
[2022-03-15 20:54] VITALS: BP 137/79
[2022-03-15 21:48] VITALS: BP 138/73
[2022-03-15] MEDS: ATORVASTATIN CALCIUM 20MG TABLET PO SCH (23:53)
[2022-03-15] MEDS: CLOPIDOGREL 75MG TABLET PO SCH (23:53)
[2022-03-15] MEDS: METOPROLOL TARTRATE 25MG TABLET PO SCH (23:53)
[2022-03-16] VITALS (15 sets, daily range): BP systolic 103–147; BP diastolic 58–86
[2022-03-16] MEDS ORDERED: ACETAMINOPHEN 325MG TABLET PO PRN
[2022-03-16] MEDS ORDERED: TRAMADOL 50MG TABLET PO PRN
[2022-03-16] MEDS: MIRTAZAPINE 15MG TABLET PO SCH ×2 (00:29→21:23)
[2022-03-16] MEDS ORDERED: DEXTROSE 50% WATER 50ML SYRINGE IV PRN (00:30)
[2022-03-16 06:29] LABS: BASOPHILS % 0.8 % (0.0-2.0); EOSINOPHILS % 2.5 % (0.0-5.0); HEMATOCRIT. 36.5 % (36.0-48.0); HEMOGLOBIN. 12.8 g/dL (12.0-16.0); MEAN CORPUSCULAR HEMOGLOBIN 30.1 pg (28.0-32.0); MEAN CORPUSCULAR VOLUME 85.7 fL (81.0-99.0); MEAN PLATELET VOLUME 8.1 fl (7.4-10.4); NEUTROPHILS % 48.7 % (40.0-76.0); PLATELET 275 x1000/uL (130-400); RED BLOOD CELL COUNT 4.26 mill/uL (4.2-5.4); RED CELL DISTRIBUTION WIDTH 13.8 % (11.6-14.6)
[2022-03-16 06:59] LABS: CHLORIDE 111 mEq/L (98-107)
[2022-03-16] MEDS: BLOOD SUGAR DIAGNOSTIC STRIP TEST SCH ×4 (07:30→21:13)
[2022-03-16] MEDS ORDERED: INSULIN LISPRO 100 UNITS/ML SUBCUT SCH (07:30)
[2022-03-16] MEDS: INSULIN LISPRO (LOW DOSE) 100 UNITS/ML SUBCUT SCH ×3 (08:00→18:00)
[2022-03-16] MEDS: LOSARTAN POTASSIUM 25 MG TABLET PO SCH (08:18)
[2022-03-16] MEDS: METOPROLOL TARTRATE 25MG TABLET PO SCH ×2 (08:19→21:00)
[2022-03-16] MEDS: ASPIRIN 81MG TABLET PO SCH (08:19)
[2022-03-16] MEDS: CLOPIDOGREL 75MG TABLET PO SCH (08:20)
[2022-03-16] MEDS ORDERED: DIPHENHYDRAMINE 25MG CAPSULE PO PRN (13:00)
[2022-03-16] MEDS: FAMOTIDINE 20MG TABLET PO SCH ×2 (13:49→21:23)
[2022-03-16] MEDS: METHYLPREDNISOLONE SOD SUCC 125 MG/2 ML VIAL IV SCH ×2 (13:49→21:22)
[2022-03-16] MEDS ORDERED: DIPHENHYDRAMINE 25MG CAPSULE PO SCH (14:00)
[2022-03-16] MEDS ORDERED: LORAZEPAM 0.5MG TABLET PO PRN (17:15)
[2022-03-16] MEDS ORDERED: MIRTAZAPINE 15MG TABLET PO SCH (21:00)
[2022-03-16] MEDS ORDERED: FAMOTIDINE 20MG TABLET PO SCH (21:00)
[2022-03-16] MEDS: ATORVASTATIN CALCIUM 20MG TABLET PO SCH (21:22)
[2022-03-16] MEDS: DIPHENHYDRAMINE 25MG CAPSULE PO SCH (21:23)
[2022-03-17] VITALS (27 sets, daily range): BP systolic 99–164; BP diastolic 36–95
[2022-03-17 06:15] LABS: CHLORIDE 109 mEq/L (98-107)
[2022-03-17 06:37] LABS: BASOPHILS % 0.1 % (0.0-2.0); HEMATOCRIT. 37.9 % (36.0-48.0); HEMOGLOBIN. 13.1 g/dL (12.0-16.0); LYMPHOCYTES % 16.6 % (20.0-50.0); MEAN CORPUSCULAR HEMOGLOBIN 29.4 pg (28.0-32.0); MEAN CORPUSCULAR VOLUME 84.9 fL (81.0-99.0); MEAN PLATELET VOLUME 8.3 fl (7.4-10.4); MONOCYTES % 0.6 % (2.0-8.0); NEUTROPHILS % 82.7 % (40.0-76.0); PLATELET 298 x1000/uL (130-400); RED BLOOD CELL COUNT 4.46 mill/uL (4.2-5.4); RED CELL DISTRIBUTION WIDTH 13.7 % (11.6-14.6)
[2022-03-17] MEDS: BLOOD SUGAR DIAGNOSTIC STRIP TEST SCH ×4 (06:43→20:44)
[2022-03-17] MEDS ORDERED: NITROGLYCERIN 50MCG/ML 10ML VIAL (CATH LAB) IV ONE (07:33)
[2022-03-17] MEDS ORDERED: NICARDIPINE 100MCG/ML 10ML VIAL (CATH LAB) IV ONE (07:33)
[2022-03-17] MEDS: INSULIN LISPRO (LOW DOSE) 100 UNITS/ML SUBCUT SCH ×4 (08:00→20:43)
[2022-03-17] MEDS: METHYLPREDNISOLONE SOD SUCC 125 MG/2 ML VIAL IV SCH (08:35)
[2022-03-17] MEDS: DIPHENHYDRAMINE 25MG CAPSULE PO SCH (08:36)
[2022-03-17] MEDS: ASPIRIN 81MG TABLET PO SCH (08:36)
[2022-03-17] MEDS: CLOPIDOGREL 75MG TABLET PO SCH (08:36)
[2022-03-17] MEDS: FAMOTIDINE 20MG TABLET PO SCH (08:36)
[2022-03-17] MEDS: LOSARTAN POTASSIUM 25 MG TABLET PO SCH (08:36)
[2022-03-17] MEDS: METOPROLOL TARTRATE 25MG TABLET PO SCH ×2 (08:41→20:41)
[2022-03-17] MEDS ORDERED: MORPHINE SULFATE 2 MG/ML CPJ (NOT FOR IM USE) IV PRN (13:15)
[2022-03-17] MEDS ORDERED: ONDANSETRON HCL 4MG/2ML INJ IV PRN (13:15)
[2022-03-17] MEDS ORDERED: ACETAMINOPHEN 325MG TABLET PO PRN (13:15)
[2022-03-17] MEDS ORDERED: ATROPINE SULFATE 1MG/10ML SYR IV PRN (13:15)
[2022-03-17] MEDS ORDERED: SODIUM CHLORIDE 0.45% 1,000 ML IV ONE (13:30)
[2022-03-17] MEDS ORDERED: NALOXONE HCL 0.4MG/ML VIAL IV PRN (20:15)
[2022-03-17] MEDS: MIRTAZAPINE 15MG TABLET PO SCH (20:40)
[2022-03-17] MEDS: ATORVASTATIN CALCIUM 20MG TABLET PO SCH (20:40)
[2022-03-18] VITALS: BP 100/60
[2022-03-18 02:00] VITALS: BP 126/66
[2022-03-18 04:00] VITALS: BP 114/59
[2022-03-18 05:02] VITALS: BP 114/59
== END 2022-03-18 06:15 | disposition home or self-care (01) | DRG 287 ==
LOC: ER 13:55 → 5EST 16:47 → ENRESERV 18:06
PROVIDERS: ADMIT Internal Medicine Endocrinology, Diabetes & Metabolism; ATTEND Internal Medicine Endocrinology, Diabetes & Metabolism
PROC: B2111ZZ Fluoroscopy of Multiple Coronary Arteries using Low Osmolar Contrast (ICD-10-PCS; principal; 2022-03-17)
PROC: 4A023N7 Measurement of Cardiac Sampling and Pressure, Left Heart, Percutaneous Approach (ICD-10-PCS; 2022-03-17)
DX: I25.110 Atherosclerotic heart disease of native coronary artery with unstable angina pectoris (principal); M51.36 Other intervertebral disc degeneration, lumbar region; M48.02 Spinal stenosis, cervical region; I10 Essential (primary) hypertension; E11.9 Type 2 diabetes mellitus without complications; E88.09 Other disorders of plasma-protein metabolism, not elsewhere classified; M16.12 Unilateral primary osteoarthritis, left hip; M51.37 Other intervertebral disc degeneration, lumbosacral region; E78.00 Pure hypercholesterolemia, unspecified; F17.200 Nicotine dependence, unspecified, uncomplicated; M79.10 Myalgia, unspecified site; Z96.652 Presence of left artificial knee joint; D72.829 Elevated white blood cell count, unspecified; J45.909 Unspecified asthma, uncomplicated; Z20.822 Contact with and (suspected) exposure to COVID-19; T38.0X5A Adverse effect of glucocorticoids and synthetic analogues, initial encounter; Y92.89 Other specified places as the place of occurrence of the external cause; Z95.5 Presence of coronary angioplasty implant and graft; Z91.041 Radiographic dye allergy status; Z79.899 Other long term (current) drug therapy; Z79.82 Long term (current) use of aspirin; Z90.710 Acquired absence of both cervix and uterus; Z79.84 Long term (current) use of oral hypoglycemic drugs; I25.2 Old myocardial infarction; Z82.49 Family history of ischemic heart disease and other diseases of the circulatory system; Z63.4 Disappearance and death of family member
CPT/HCPCS: 36415; 71045; 80048; 80053; 80061; 82962; 83735; 83880; 84439; 84443; 84480; 84484; 85025; 85379; 86850; 86900; 87426; 93005; 93306; 93458; 99285; C1769; C1887; C1893; J1815; J2930; J3490; Q0163

== ENCOUNTER → 2022-03-15 | Outpatient (CLI) | payer BC ==
[2022-03-15 07:24] LABS: BASOPHILS % 0.8 % (0.0-2.0); EOSINOPHILS % 2.2 % (0.0-5.0); HEMATOCRIT. 36.4 % (36.0-48.0); HEMOGLOBIN. 12.4 g/dL (12.0-16.0); LYMPHOCYTES % 33.6 % (20.0-50.0); MEAN CORPUSCULAR HEMOGLOBIN 29.2 pg (28.0-32.0); MEAN PLATELET VOLUME 7.9 fl (7.4-10.4); MONOCYTES % 6.9 % (2.0-8.0); NEUTROPHILS % 56.5 % (40.0-76.0); PLATELET 283 x1000/uL (130-400); RED BLOOD CELL COUNT 4.23 mill/uL (4.2-5.4); RED CELL DISTRIBUTION WIDTH 13.6 % (11.6-14.6)
[2022-03-15 08:11] LABS: CHLORIDE 108 mEq/L (98-107)
[2022-03-15 08:36] LABS: HDL CHOLESTEROL 50 mg/dL (40-59); LDL CHOLESTEROL 67 mg/dL (5-100)
== END | disposition home or self-care (01) ==
LOC: LAB 06:22
PROVIDERS: ATTEND Internal Medicine Endocrinology, Diabetes & Metabolism
DX: I10 Essential (primary) hypertension (principal); E11.9 Type 2 diabetes mellitus without complications; E55.9 Vitamin D deficiency, unspecified; E78.5 Hyperlipidemia, unspecified
CPT/HCPCS: 36415; 80053; 80061; 82306; 83036; 84439; 84443; 85025

== ENCOUNTER → 2022-03-25 | Outpatient (CLI) | payer BC | END | disposition home or self-care (01) | LOC: RAD 09:35 | PROVIDERS: ATTEND Psychiatry & Neurology Neurology | DX: M47.812 Spondylosis without myelopathy or radiculopathy, cervical region (principal); M48.02 Spinal stenosis, cervical region; M50.222 Other cervical disc displacement at C5-C6 level; M50.321 Other cervical disc degeneration at C4-C5 level; R20.2 Paresthesia of skin | CPT/HCPCS: 70551; 72141 ==

== ENCOUNTER → 2022-12-10 | Outpatient (CLI) | payer BC ==
[2022-12-10 08:33] LABS: BASOPHILS % 0.9 % (0.0-2.0); EOSINOPHILS % 2.3 % (0.0-5.0); HEMATOCRIT. 35.2 % (36.0-48.0); HEMOGLOBIN. 12.2 g/dL (12.0-16.0); LYMPHOCYTES % 42.4 % (20.0-50.0); MEAN CORPUSCULAR HEMOGLOBIN 29.6 pg (28.0-32.0); MEAN CORPUSCULAR VOLUME 85.1 fL (81.0-99.0); MEAN PLATELET VOLUME 7.7 fl (7.4-10.4); MONOCYTES % 6.3 % (2.0-8.0); NEUTROPHILS % 48.1 % (40.0-76.0); PLATELET 273 x1000/uL (130-400); RED BLOOD CELL COUNT 4.13 mill/uL (4.2-5.4); RED CELL DISTRIBUTION WIDTH 13.3 % (11.6-14.6)
[2022-12-10 08:44] LABS: CHLORIDE 108 mEq/L (98-107)
[2022-12-10 08:59] LABS: HDL CHOLESTEROL 51 mg/dL (40-59); LDL CHOLESTEROL 80 mg/dL (5-100); T4 FREE 1.11 ng/dL (0.76-1.46)
[2022-12-11 14:10] LABS: MICROALBUMIN RANDOM URINE 27.8 ug/mL (Not Estab.)
== END | disposition home or self-care (01) ==
LOC: LAB 08:10
PROVIDERS: ATTEND Internal Medicine Endocrinology, Diabetes & Metabolism
DX: I10 Essential (primary) hypertension (principal); E11.9 Type 2 diabetes mellitus without complications; E78.5 Hyperlipidemia, unspecified; M10.9 Gout, unspecified
CPT/HCPCS: 36415; 80053; 80061; 82043; 82570; 83036; 84439; 84443; 84550; 85025

== ENCOUNTER → 2023-03-24 | Outpatient (CLI) | payer BC ==
[2023-03-24 07:08] LABS: BASOPHILS % 0.9 % (0.0-2.0); EOSINOPHILS % 2.1 % (0.0-5.0); HEMATOCRIT. 35.3 % (36.0-48.0); HEMOGLOBIN. 12.6 g/dL (12.0-16.0); LYMPHOCYTES % 34.5 % (20.0-50.0); MEAN CORPUSCULAR HEMOGLOBIN 30.4 pg (28.0-32.0); MEAN CORPUSCULAR VOLUME 85.5 fL (81.0-99.0); MEAN PLATELET VOLUME 7.7 fl (7.4-10.4); MONOCYTES % 6.2 % (2.0-8.0); NEUTROPHILS % 56.3 % (40.0-76.0); PLATELET 277 x1000/uL (130-400); RED BLOOD CELL COUNT 4.13 mill/uL (4.2-5.4); RED CELL DISTRIBUTION WIDTH 13.6 % (11.6-14.6)
[2023-03-24 07:19] LABS: CHLORIDE 106 mEq/L (98-107)
[2023-03-24 08:01] LABS: HDL CHOLESTEROL 48 mg/dL (40-59); LDL CHOLESTEROL 67 mg/dL (5-100); T4 FREE 1.02 ng/dL (0.76-1.46)
== END | disposition home or self-care (01) ==
LOC: LAB 06:27
PROVIDERS: ATTEND Specialist
DX: E11.9 Type 2 diabetes mellitus without complications (principal); E78.2 Mixed hyperlipidemia; E55.9 Vitamin D deficiency, unspecified; D64.9 Anemia, unspecified
CPT/HCPCS: 36415; 80053; 80061; 83036; 84439; 84443; 84481; 85025

== ENCOUNTER → 2023-03-29 | Outpatient (CLI) | payer BC | END | disposition home or self-care (01) | LOC: RAD 07:05 | PROVIDERS: ATTEND Internal Medicine Endocrinology, Diabetes & Metabolism | DX: M85.88 Other specified disorders of bone density and structure, other site (principal); M85.80 Other specified disorders of bone density and structure, unspecified site; M54.50 Low back pain, unspecified | CPT/HCPCS: 77080 ==

== ENCOUNTER → 2023-03-30 | Outpatient (CLI) | payer BC | END | disposition home or self-care (01) | LOC: MRI 09:33 | PROVIDERS: ATTEND Internal Medicine Endocrinology, Diabetes & Metabolism | DX: M48.061 Spinal stenosis, lumbar region without neurogenic claudication (principal); M54.50 Low back pain, unspecified; M85.80 Other specified disorders of bone density and structure, unspecified site; M25.552 Pain in left hip; M25.551 Pain in right hip; M47.816 Spondylosis without myelopathy or radiculopathy, lumbar region; R60.9 Edema, unspecified; M12.88 Other specific arthropathies, not elsewhere classified, other specified site; M51.36 Other intervertebral disc degeneration, lumbar region | CPT/HCPCS: 72148; 72195 ==

== ENCOUNTER → 2023-04-20 | Outpatient (CLI) | payer BC ==
[2023-04-20 07:30] LABS: MEAN CORPUSCULAR VOLUME 86.1 fL (81.0-99.0); MONOCYTES % 6.3 % (2.0-8.0)
[2023-04-20 07:32] LABS: BASOPHILS % 0.9 % (0.0-2.0); EOSINOPHILS % 1.9 % (0.0-5.0); HEMATOCRIT. 34.2 % (36.0-48.0); LYMPHOCYTES % 37.3 % (20.0-50.0); MEAN CORPUSCULAR HEMOGLOBIN 30.1 pg (28.0-32.0); MEAN PLATELET VOLUME 7.7 fl (7.4-10.4); NEUTROPHILS % 53.6 % (40.0-76.0); PLATELET 280 x1000/uL (130-400); RED BLOOD CELL COUNT 3.97 mill/uL (4.2-5.4); RED CELL DISTRIBUTION WIDTH 13.7 % (11.6-14.6); WHITE BLOOD COUNT 7.7 x1000/uL (4.5-11.0)
[2023-04-20 08:06] LABS: CHLORIDE 107 mEq/L (98-107); INDEX HEMOLYSI 1 (1-3); INDEX ICTERIC 1 (1-4); INDEX LIPEMIC 1 (1-3); POTASSIUM 3.7 mEq/L (3.5-5.1); SODIUM 141 mEq/L (136-145)
[2023-04-20 08:20] LABS: ALANINE AMINOTRANSFERASE 33 IU/L (13-61); ALBUMIN 3.8 g/dL (3.4-5.0); ASPARTATE AMINOTRANSFERASE 21 IU/L (15-37); CALCIUM 8.9 mg/dL (8.5-10.1); CARBON DIOXIDE 26 mEq/L (21-32); CHOLESTEROL 140 mg/dL (<200); CREATININE 0.7 mg/dL (0.6-1.3); GLUCOSE 131 mg/dL (70-105); HDL CHOLESTEROL 46 mg/dL (40-59); LDL CHOLESTEROL 75 mg/dL (5-100); PROTEIN TOTAL 7.7 g/dL (6.0-8.3); T4 FREE 1.13 ng/dL (0.76-1.46); THYROID STIMULATING HORMONE 0.86 uIU/mL (0.36-3.74); TRIGLYCERIDE 183 mg/dL (0-150); UREA NITROGEN BLOOD 15 mg/dL (7-21); URIC ACID 5.3 mg/dL (2.6-7.2)
[2023-04-20 08:23] LABS: CLARITY URINE CLEAR (CLEAR); COLOR URINE YELLOW (YELLOW)
[2023-04-20 08:24] LABS: GLUCOSE URINE NEGATIVE (NEGATIVE); KETONES URINE NEGATIVE (NEGATIVE); LEUKOCYTE ESTERASE URINE NEGATIVE (NEGATIVE); NITRITE URINE NEGATIVE (NEGATIVE); OCCULT BLOOD URINE NEGATIVE (NEGATIVE); PH URINE 5.5 (4.5-8.0); PROTEIN URINE NEGATIVE (NEGATIVE); SPECIFIC GRAVITY URINE 1.018 (1.005-1.030); UROBILINOGEN URINE 0.2 E.U./dL (0.2-1.0)
== END | disposition home or self-care (01) ==
LOC: LAB 06:59
PROVIDERS: ATTEND Internal Medicine Endocrinology, Diabetes & Metabolism
DX: E11.9 Type 2 diabetes mellitus without complications (principal); I10 Essential (primary) hypertension; E78.5 Hyperlipidemia, unspecified; M10.9 Gout, unspecified
CPT/HCPCS: 36415; 80053; 80061; 81003; 83036; 84439; 84443; 84550; 85025

== ENCOUNTER → 2023-05-30 | Outpatient (CLI) | payer BC | END | disposition home or self-care (01) | LOC: RAD 07:47 | PROVIDERS: ATTEND Internal Medicine | DX: M17.12 Unilateral primary osteoarthritis, left knee (principal); M25.762 Osteophyte, left knee | CPT/HCPCS: 73560 ==

== ENCOUNTER → 2023-05-30 | Outpatient (CLI) | payer BC ==
[2023-05-30 08:48] LABS: BASOPHILS % 0.9 % (0.0-2.0); EOSINOPHILS % 1.9 % (0.0-5.0); HEMATOCRIT. 37.6 % (36.0-48.0); HEMOGLOBIN. 12.9 g/dL (12.0-16.0); LYMPHOCYTES % 37.6 % (20.0-50.0); MEAN CORPUSCULAR HEMOGLOBIN 29.7 pg (28.0-32.0); MEAN CORPUSCULAR HGB CONC 34.3 g/dL (31.0-37.0); MEAN CORPUSCULAR VOLUME 86.6 fL (81.0-99.0); MEAN PLATELET VOLUME 7.8 fl (7.4-10.4); NEUTROPHILS % 54.6 % (40.0-76.0); PLATELET 286 x1000/uL (130-400); RED BLOOD CELL COUNT 4.34 mill/uL (4.2-5.4); RED CELL DISTRIBUTION WIDTH 13.5 % (11.6-14.6); WHITE BLOOD COUNT 6.7 x1000/uL (4.5-11.0)
[2023-05-30 09:11] LABS: CHLORIDE 106 mEq/L (98-107); INDEX HEMOLYSI 1 (1-3); INDEX ICTERIC 1 (1-4); INDEX LIPEMIC 1 (1-3); POTASSIUM 3.6 mEq/L (3.5-5.1); SODIUM 141 mEq/L (136-145)
[2023-05-30 09:29] LABS: ALANINE AMINOTRANSFERASE 29 IU/L (13-61); ALBUMIN 4.2 g/dL (3.4-5.0); ASPARTATE AMINOTRANSFERASE 15 IU/L (15-37); BILIRUBIN TOTAL 0.5 mg/dL (0.1-1.0); CALCIUM 8.9 mg/dL (8.5-10.1); CARBON DIOXIDE 29 mEq/L (21-32); CHOLESTEROL 174 mg/dL (<200); CREATININE 0.6 mg/dL (0.6-1.3); GLUCOSE 122 mg/dL (70-105); HDL CHOLESTEROL 53 mg/dL (40-59); LDL CHOLESTEROL 103 mg/dL (5-100); PROTEIN TOTAL 8.3 g/dL (6.0-8.3); T4 FREE 1.11 ng/dL (0.76-1.46); TRIGLYCERIDE 210 mg/dL (0-150); UREA NITROGEN BLOOD 15 mg/dL (7-21)
== END | disposition home or self-care (01) ==
LOC: LAB 07:49
PROVIDERS: ATTEND Specialist
DX: E78.2 Mixed hyperlipidemia (principal); E11.9 Type 2 diabetes mellitus without complications; D64.9 Anemia, unspecified; E55.9 Vitamin D deficiency, unspecified
CPT/HCPCS: 36415; 80053; 80061; 82306; 83036; 84439; 84443; 84481; 85025

== ENCOUNTER → 2023-12-16 | Outpatient (CLI) | payer BC ==
[2023-12-16 07:22] LABS: BASOPHILS % 1.1 % (0.0-2.0); EOSINOPHILS % 2.4 % (0.0-5.0); HEMATOCRIT. 33.7 % (36.0-48.0); HEMOGLOBIN. 11.6 g/dL (12.0-16.0); LYMPHOCYTES % 36.8 % (20.0-50.0); MEAN CORPUSCULAR HEMOGLOBIN 29.5 pg (28.0-32.0); MEAN CORPUSCULAR HGB CONC 34.6 g/dL (31.0-37.0); MEAN CORPUSCULAR VOLUME 85.2 fL (81.0-99.0); MEAN PLATELET VOLUME 7.2 fl (7.4-10.4); NEUTROPHILS % 52.7 % (40.0-76.0); PLATELET 330 x1000/uL (130-400); RED BLOOD CELL COUNT 3.95 mill/uL (4.2-5.4); RED CELL DISTRIBUTION WIDTH 12.9 % (11.6-14.6); WHITE BLOOD COUNT 6.6 x1000/uL (4.5-11.0)
[2023-12-16 07:38] LABS: CHLORIDE 105 mEq/L (98-107); POTASSIUM 3.5 mEq/L (3.5-5.1); SODIUM 139 mEq/L (136-145)
[2023-12-16 07:39] LABS: CALCIUM 9.1 mg/dL (8.7-10.4); CARBON DIOXIDE 29 mEq/L (21-32)
[2023-12-16 07:44] LABS: CREATININE 0.7 mg/dL (0.6-1.0); GLUCOSE 119 mg/dL (70-105); TRIGLYCERIDE 151 mg/dL (0-150); UREA NITROGEN BLOOD 8 mg/dL (9-23)
[2023-12-16 07:45] LABS: LDL CHOLESTEROL 93 mg/dL (5-100)
[2023-12-16 07:46] LABS: ALANINE AMINOTRANSFERASE 16 IU/L (10-49); ALBUMIN 4.4 g/dL (3.2-4.8); ASPARTATE AMINOTRANSFERASE 19 IU/L (<34); CHOLESTEROL 162 mg/dL (<200); HDL CHOLESTEROL 45 mg/dL (>65); PHOSPHORUS 2.8 mg/dL (2.5-4.9)
[2023-12-16 07:47] LABS: BILIRUBIN TOTAL 0.6 mg/dL (0.1-1.0); PROTEIN TOTAL 7.4 g/dL (6.0-8.3)
[2023-12-16 07:48] LABS: T4 FREE 1.43 ng/dL (0.89-1.76)
[2023-12-16 07:49] LABS: THYROID STIMULATING HORMONE 0.49 uIU/mL (0.55-4.78)
== END | disposition home or self-care (01) ==
LOC: LAB 06:56
PROVIDERS: ATTEND Internal Medicine Endocrinology, Diabetes & Metabolism
DX: I10 Essential (primary) hypertension (principal); E11.9 Type 2 diabetes mellitus without complications; E78.5 Hyperlipidemia, unspecified
CPT/HCPCS: 36415; 80053; 80061; 83036; 83735; 83970; 84100; 84439; 84443; 85025

== ENCOUNTER → 2024-01-26 | Outpatient (CLI) | payer BC ==
[2024-01-26 09:46] LABS: BASOPHILS % 0.9 % (0.0-2.0); EOSINOPHILS % 1.8 % (0.0-5.0); HEMATOCRIT. 38.4 % (36.0-48.0); HEMOGLOBIN. 13.2 g/dL (12.0-16.0); LYMPHOCYTES % 39.9 % (20.0-50.0); MEAN CORPUSCULAR HEMOGLOBIN 29.7 pg (28.0-32.0); MEAN CORPUSCULAR HGB CONC 34.5 g/dL (31.0-37.0); MEAN CORPUSCULAR VOLUME 86.2 fL (81.0-99.0); MEAN PLATELET VOLUME 7.9 fl (7.4-10.4); MONOCYTES % 5.1 % (2.0-8.0); NEUTROPHILS % 52.3 % (40.0-76.0); PLATELET 293 x1000/uL (130-400); RED BLOOD CELL COUNT 4.46 mill/uL (4.2-5.4); RED CELL DISTRIBUTION WIDTH 13.9 % (11.6-14.6); WHITE BLOOD COUNT 7.9 x1000/uL (4.5-11.0)
[2024-01-26 09:51] LABS: CARBON DIOXIDE 27 mEq/L (21-32); CHLORIDE 102 mEq/L (98-107); POTASSIUM 4.3 mEq/L (3.5-5.1); SODIUM 138 mEq/L (136-145)
[2024-01-26 09:52] LABS: CALCIUM 10.3 mg/dL (8.7-10.4)
[2024-01-26 09:57] LABS: CREATININE 0.8 mg/dL (0.6-1.0); GLUCOSE 110 mg/dL (70-105); TRIGLYCERIDE 214 mg/dL (0-150); UREA NITROGEN BLOOD 15 mg/dL (9-23)
[2024-01-26 09:58] LABS: ALANINE AMINOTRANSFERASE 19 IU/L (10-49); LDL CHOLESTEROL 80 mg/dL (5-100)
[2024-01-26 09:59] LABS: ALBUMIN 4.8 g/dL (3.2-4.8); ASPARTATE AMINOTRANSFERASE 23 IU/L (<34); BILIRUBIN TOTAL 0.9 mg/dL (0.1-1.0); CHOLESTEROL 158 mg/dL (<200); HDL CHOLESTEROL 50 mg/dL (>65); PROTEIN TOTAL 8.2 g/dL (6.0-8.3)
[2024-01-26 12:24] LABS: VITAMIN B12 SERUM 577 pg/mL (211-911)
[2024-01-26 12:39] LABS: FOLIC ACID (FOLATE) SERUM > 20.00 ng/mL (>5.38)
[2024-01-27 09:11] LABS: ANTI-NUCLEAR ANTIBODIES DIRECT Negative (Negative); VITAMIN D 25-OH 34.8 ng/mL (30.0-100.0)
[2024-01-30 19:09] LABS: METHYLMALONIC ACID 189 nmol/L (0-378)
== END | disposition home or self-care (01) ==
LOC: LAB 08:46
PROVIDERS: ATTEND Internal Medicine Endocrinology, Diabetes & Metabolism
DX: E11.9 Type 2 diabetes mellitus without complications (principal); D64.9 Anemia, unspecified; E78.5 Hyperlipidemia, unspecified; E55.9 Vitamin D deficiency, unspecified
CPT/HCPCS: 36415; 80053; 80061; 82306; 82607; 82746; 83036; 83921; 85025; 86038; 86430

== ENCOUNTER → 2024-09-06 | Outpatient (CLI) | payer BC ==
[2024-09-06 09:44] LABS: BASOPHILS % 0.9 % (0.0-2.0); EOSINOPHILS % 1.7 % (0.0-5.0); HEMATOCRIT. 37.5 % (36.0-48.0); HEMOGLOBIN. 12.4 g/dL (12.0-16.0); LYMPHOCYTES % 42.6 % (20.0-50.0); MEAN CORPUSCULAR HEMOGLOBIN 29.3 pg (28.0-32.0); MEAN CORPUSCULAR HGB CONC 33.2 g/dL (31.0-37.0); MEAN CORPUSCULAR VOLUME 88.2 fL (81.0-99.0); MEAN PLATELET VOLUME 7.8 fl (7.4-10.4); MONOCYTES % 5.6 % (2.0-8.0); NEUTROPHILS % 49.2 % (40.0-76.0); PLATELET 292 x1000/uL (130-400); RED BLOOD CELL COUNT 4.25 mill/uL (4.2-5.4); RED CELL DISTRIBUTION WIDTH 13.8 % (11.6-14.6); WHITE BLOOD COUNT 6.9 x1000/uL (4.5-11.0)
[2024-09-06 09:59] LABS: CHLORIDE 106 mEq/L (98-107); POTASSIUM 4.5 mEq/L (3.5-5.1); SODIUM 143 mEq/L (136-145)
[2024-09-06 10:00] LABS: CARBON DIOXIDE 30 mEq/L (21-32)
[2024-09-06 10:05] LABS: CREATININE 0.8 mg/dL (0.6-1.0); GLUCOSE 111 mg/dL (70-105); TRIGLYCERIDE 150 mg/dL (0-150); UREA NITROGEN BLOOD 13 mg/dL (9-23)
[2024-09-06 10:06] LABS: LDL CHOLESTEROL 68 mg/dL (5-100)
[2024-09-06 10:07] LABS: ALANINE AMINOTRANSFERASE 16 IU/L (10-49); ALBUMIN 4.6 g/dL (3.2-4.8); ASPARTATE AMINOTRANSFERASE 18 IU/L (<34); BILIRUBIN TOTAL 0.7 mg/dL (0.1-1.0); CHOLESTEROL 142 mg/dL (<200); HDL CHOLESTEROL 50 mg/dL (>65); PROTEIN TOTAL 7.8 g/dL (6.0-8.3)
== END | disposition home or self-care (01) ==
LOC: LAB 09:04
PROVIDERS: ATTEND Specialist
DX: E11.9 Type 2 diabetes mellitus without complications (principal); E78.2 Mixed hyperlipidemia; D64.9 Anemia, unspecified; E55.9 Vitamin D deficiency, unspecified
CPT/HCPCS: 36415; 80053; 80061; 82306; 83036; 85025

== ENCOUNTER → 2024-09-06 | Outpatient (CLI) | payer BC ==
[2024-09-06 10:10] LABS: T4 FREE 1.35 ng/dL (0.89-1.76)
[2024-09-06 10:11] LABS: THYROID STIMULATING HORMONE 0.89 uIU/mL (0.55-4.78)
[2024-09-07 06:07] LABS: LUTEINIZING HORMONE 22.7 mIU/mL (7.7-58.5); PROLACTIN 7.7 ng/mL (3.6-25.2)
== END | disposition home or self-care (01) ==
LOC: RAD 08:56
PROVIDERS: ATTEND Internal Medicine Endocrinology, Diabetes & Metabolism
DX: M17.12 Unilateral primary osteoarthritis, left knee (principal); R05.9 Cough, unspecified; E23.0 Hypopituitarism
CPT/HCPCS: 36415; 71046; 73030; 73110; 73562; 83001; 83002; 83520; 84146; 84439; 84443; 84481

== ENCOUNTER → 2024-12-10 | Outpatient (CLI) | payer BC ==
[~2024-12-10] MED LIST changes: +AMLO-905 PO; -AMLO10TA4 PO
[2024-12-10 08:51] LABS: EOSINOPHILS % 2.3 % (0.0-5.0); HEMATOCRIT. 36.6 % (36.0-48.0); HEMOGLOBIN. 12.2 g/dL (12.0-16.0); LYMPHOCYTES % 33.3 % (20.0-50.0); MEAN CORPUSCULAR HEMOGLOBIN 28.9 pg (28.0-32.0); MEAN CORPUSCULAR HGB CONC 33.4 g/dL (31.0-37.0); MEAN CORPUSCULAR VOLUME 86.4 fL (81.0-99.0); MEAN PLATELET VOLUME 7.8 fl (7.4-10.4); MONOCYTES % 5.3 % (2.0-8.0); NEUTROPHILS % 58.1 % (40.0-76.0); PLATELET 281 x1000/uL (130-400); RED BLOOD CELL COUNT 4.24 mill/uL (4.2-5.4); RED CELL DISTRIBUTION WIDTH 13.5 % (11.6-14.6)
[2024-12-10 08:54] LABS: CLARITY URINE CLEAR (CLEAR); COLOR URINE YELLOW (YELLOW); GLUCOSE URINE NEGATIVE (NEGATIVE); KETONES URINE NEGATIVE (NEGATIVE); LEUKOCYTE ESTERASE URINE TRACE (NEGATIVE); NITRITE URINE NEGATIVE (NEGATIVE); OCCULT BLOOD URINE NEGATIVE (NEGATIVE); PH URINE 5.5 (4.5-8.0); PROTEIN URINE NEGATIVE (NEGATIVE); SPECIFIC GRAVITY URINE 1.018 (1.005-1.030); UROBILINOGEN URINE 0.2 E.U./dL (0.2-1.0)
[2024-12-10 09:03] LABS: CHLORIDE 106 mEq/L (98-107); SODIUM 143 mEq/L (136-145)
[2024-12-10 09:04] LABS: CALCIUM 10.3 mg/dL (8.7-10.4); CARBON DIOXIDE 29 mEq/L (21-32)
[2024-12-10 09:09] LABS: CREATININE 0.7 mg/dL (0.6-1.0); GLUCOSE 112 mg/dL (70-105); TRIGLYCERIDE 83 mg/dL (0-150); UREA NITROGEN BLOOD 13 mg/dL (9-23)
[2024-12-10 09:10] LABS: LDL CHOLESTEROL 57 mg/dL (5-100)
[2024-12-10 09:11] LABS: ALANINE AMINOTRANSFERASE 14 IU/L (10-49); ALBUMIN 4.5 g/dL (3.2-4.8); ASPARTATE AMINOTRANSFERASE 16 IU/L (<34); BILIRUBIN TOTAL 0.6 mg/dL (0.1-1.0); CHOLESTEROL 122 mg/dL (<200); HDL CHOLESTEROL 50 mg/dL (>65); PROTEIN TOTAL 7.8 g/dL (6.0-8.3)
[2024-12-10 09:13] LABS: THYROID STIMULATING HORMONE 0.78 uIU/mL (0.55-4.78)
[2024-12-10 09:14] LABS: T4 FREE 1.37 ng/dL (0.89-1.76)
[2024-12-10 09:18] LABS: BACTERIA URINE NONE SEEN; RBC URINE 0-2 /hpf (0-2); SQUAMOUS EPITHELIAL CELL URINE NONE SEEN /lpf (RARE/1+); WBC URINE 0-2 /hpf (0-2)
== END | disposition home or self-care (01) ==
LOC: LAB 07:47
PROVIDERS: ATTEND Internal Medicine Endocrinology, Diabetes & Metabolism
DX: I10 Essential (primary) hypertension (principal); E11.9 Type 2 diabetes mellitus without complications; N39.0 Urinary tract infection, site not specified; E78.5 Hyperlipidemia, unspecified; E55.9 Vitamin D deficiency, unspecified
CPT/HCPCS: 36415; 80053; 80061; 81003; 82306; 83036; 84439; 84443; 85025

== ENCOUNTER → 2024-12-12 | Outpatient (CLI) | payer BC | END | disposition home or self-care (01) | LOC: US 07:22 | PROVIDERS: ATTEND Internal Medicine Endocrinology, Diabetes & Metabolism | DX: K57.30 Diverticulosis of large intestine without perforation or abscess without bleeding (principal); K44.9 Diaphragmatic hernia without obstruction or gangrene; K76.0 Fatty (change of) liver, not elsewhere classified; K76.89 Other specified diseases of liver; N32.89 Other specified disorders of bladder; I70.0 Atherosclerosis of aorta; R19.5 Other fecal abnormalities; M47.817 Spondylosis without myelopathy or radiculopathy, lumbosacral region; R10.9 Unspecified abdominal pain; Z90.710 Acquired absence of both cervix and uterus; Z90.722 Acquired absence of ovaries, bilateral; Z87.19 Personal history of other diseases of the digestive system | CPT/HCPCS: 74021; 74176; 76700; 76856 ==

== ENCOUNTER 2025-07-05 13:51 | Emergency (ER) | payer BC ==
[~2025-07-05] VITALS: Ht 165.1 cm; Wt 66.0 kg
[2025-07-05 13:53] VITALS: O2SAT 100
[2025-07-05] MEDS: ALPRAZOLAM 0.25 MG TABLET PO ONE (14:11)
[2025-07-05] MEDS: SODIUM CHLORIDE 0.9% 1,000 ML IV ONE (14:14)
[2025-07-05 14:26] LABS: BASOPHILS % 1.0 % (0.0-2.0); EOSINOPHILS % 1.9 % (0.0-5.0); HEMATOCRIT. 36.6 % (36.0-48.0); HEMOGLOBIN. 12.4 g/dL (12.0-16.0); LYMPHOCYTES % 40.6 % (20.0-50.0); MEAN PLATELET VOLUME 7.9 fl (7.4-10.4); MONOCYTES % 7.9 % (2.0-8.0); NEUTROPHILS % 48.6 % (40.0-76.0); PLATELET 304 x1000/uL (130-400); RED BLOOD CELL COUNT 4.19 mill/uL (4.2-5.4); RED CELL DISTRIBUTION WIDTH 13.9 % (11.6-14.6)
[2025-07-05 14:44] LABS: CREATININE 0.8 mg/dL (0.6-1.0); UREA NITROGEN BLOOD 11 mg/dL (9-23)
[2025-07-05 14:45] LABS: TROPONIN I HIGH SENSITIVITY < 4 ng/L (3.0-34)
[2025-07-05] MEDS ORDERED: NITROGLYCERIN 0.4MG TABLET SL SL PRN (15:30)
[2025-07-05 16:24] VITALS: BP 122/63; PULSE 90; RESP 17; O2SAT 98
== END 2025-07-05 16:26 | disposition home or self-care (01) ==
LOC: ER 14:14 → CMPBEDREQ 07-06 07:49
DX: R07.9 Chest pain, unspecified (principal); R00.2 Palpitations; R06.02 Shortness of breath; E11.9 Type 2 diabetes mellitus without complications; E78.00 Pure hypercholesterolemia, unspecified; I11.9 Hypertensive heart disease without heart failure; I25.10 Atherosclerotic heart disease of native coronary artery without angina pectoris; F41.9 Anxiety disorder, unspecified; Z79.02 Long term (current) use of antithrombotics/antiplatelets; Z79.82 Long term (current) use of aspirin; Z79.84 Long term (current) use of oral hypoglycemic drugs; Z90.710 Acquired absence of both cervix and uterus; Z91.041 Radiographic dye allergy status; Z79.899 Other long term (current) drug therapy
CPT/HCPCS: 80048; 83880; 85025; 84484; 36415; 71045; 93005; 96360; 99284; J7030; Z7610

== ENCOUNTER → 2025-07-08 | Outpatient (CLI) | payer BC ==
[2025-07-08 09:12] LABS: BASOPHILS % 0.8 % (0.0-2.0); EOSINOPHILS % 1.8 % (0.0-5.0); HEMATOCRIT. 36.5 % (36.0-48.0); HEMOGLOBIN. 12.2 g/dL (12.0-16.0); LYMPHOCYTES % 35.5 % (20.0-50.0); MEAN PLATELET VOLUME 7.9 fl (7.4-10.4); MONOCYTES % 5.9 % (2.0-8.0); NEUTROPHILS % 56.0 % (40.0-76.0); PLATELET 306 x1000/uL (130-400); RED BLOOD CELL COUNT 4.14 mill/uL (4.2-5.4); RED CELL DISTRIBUTION WIDTH 13.7 % (11.6-14.6)
[2025-07-08 09:38] LABS: CREATININE 0.7 mg/dL (0.6-1.0)
[2025-07-08 09:39] LABS: LDL CHOLESTEROL 72 mg/dL (5-100); TRIGLYCERIDE 143 mg/dL (0-150); UREA NITROGEN BLOOD 12 mg/dL (9-23)
[2025-07-08 09:40] LABS: ASPARTATE AMINOTRANSFERASE 16 IU/L (<34)
[2025-07-08 09:41] LABS: BILIRUBIN TOTAL 0.5 mg/dL (0.1-1.0); PROTEIN TOTAL 7.9 g/dL (6.0-8.3)
[2025-07-09 09:07] LABS: VITAMIN D 25-OH 32.9 ng/mL (30.0-100.0)
== END | disposition home or self-care (01) ==
LOC: LAB 08:35
PROVIDERS: ATTEND Specialist
DX: I11.9 Hypertensive heart disease without heart failure (principal); E11.9 Type 2 diabetes mellitus without complications; E78.2 Mixed hyperlipidemia; Z79.899 Other long term (current) drug therapy
CPT/HCPCS: 36415; 80053; 80061; 82306; 83036; 83695; 83735; 84443; 85025

== ENCOUNTER → 2025-08-28 | Outpatient (CLI) | payer BC ==
[~2025-08-28] VITALS: Ht 162.6 cm; Wt 62.1 kg
[~2025-08-28] MED LIST changes: +IOHEXOL-350 100 ML BOTTLE ONE
[2025-08-28] MEDS: NITROGLYCERIN SPRAY/4.9GM CAN TL SCH (10:13)
== END | disposition home or self-care (01) ==
LOC: CT 09:32
PROVIDERS: ATTEND Specialist
DX: Z13.6 Encounter for screening for cardiovascular disorders (principal); I25.10 Atherosclerotic heart disease of native coronary artery without angina pectoris; E78.5 Hyperlipidemia, unspecified; Z95.5 Presence of coronary angioplasty implant and graft
CPT/HCPCS: 75571; Q9967